=== PATIENT | female | born 1950 | race Caucasian/White ===

== ENCOUNTER 2021-03-21 09:22 | Observation (INO) ==
--- NOTE | 2021-03-06 09:05 | PAT Medication Instructions ---
Medication Instructions Date of Service March 06, 2021 Home Medications acetaminophen [Tylenol Extra Strength] 500 mg PO Q6H PRN ascorbic acid (vitamin C) [Vitamin C] 500 mg PO QAM aspirin [Aspir-81] 81 mg PO QPM atenolol 50 mg PO QPM atorvastatin 10 mg PO PM calcium carbonate [Calcium 500] 1,000 mg PO QAM cholecalciferol (vitamin D3) [Vitamin D3] 50 mcg PO QAM glipizide 2.5 mg PO QPM ibuprofen 200 mg PO Q6H PRN lisinopril 10 mg PO QPM meloxicam 7.5 mg PO QAM omega 5-ouk-dxo-fish oil [[place] 3 Fish Oil] 1 cap PO QAM ASK your surgeon for instructions ibuprofen 200 mg PO Q6H PRN meloxicam 7.5 mg PO QAM STOP taking 2 weeks before surgery If surgery is within 2 weeks, stop taking as soon as possible. omega 3-sjn-enr-fish oil [[place] 3 Fish Oil] 1 cap PO QAM DO NOT take the morning of surgery ascorbic acid (vitamin C) [Vitamin C] 500 mg PO QAM calcium carbonate [Calcium 500] 1,000 mg PO QAM cholecalciferol (vitamin D3) [Vitamin D3] 50 mcg PO QAM Take evening before surgery acetaminophen [Tylenol Extra Strength] 500 mg PO Q6H PRN (if needed) aspirin [Aspir-81] 81 mg PO QPM (OK to continue unless otherwise instructed by surgeon) atenolol 50 mg PO QPM atorvastatin 10 mg PO PM glipizide 2.5 mg PO QPM lisinopril 10 mg PO QPM Other Notes If you have any questions please call us at [phone] or [phone] or [phone] or [phone]
--- NOTE | 2021-03-06 13:33 | Anesthesiology Consultation ---
Date of Service March 06, 2021 Assessment & Plan (1) Encounter for pre-operative examination: COVID Status: As of 03/06 assessment, patient denies travel to endemic area, known exposure/sick contacts, or symptoms of COVID19. Patient instructed that they and their household members must follow strict social distancing guidelines, wear a mask in public and avoid travel/events/gatherings for 14 days prior to surgery. Preoperative COVID19 testing to be completed prior to surgery per surgeon's arrangements. Patient made aware to self-isolate as much as possible between COVID testing and surgery. BSG AM DOS Chart Review Chart Review: Acceptable Risk for Surgery and Patient seen in Pre Admission Testing Teaching & Discussion Instructed NPO after midnight before surgery, except medications with 15 cc of water. Medication instructions provided according to the PAT guidelines. History Surgery Operation Date: 03/21/21 14:05 Proposed Procedures p Left Total Knee Arthroplasty - Rizwan Shah DO Height/Weight Height: 5 ft 2 in Weight: 121.8 kg Allergies Allergy/AdvReac Type Severity Reaction Status Date / Time Sulfa (Sulfonamide Allergy Mild RASH Verified 03/02/21 08:52 Antibiotics) Medications Home Medications Medication Instructions Recorded Confirmed Last Taken acetaminophen [Tylenol Extra 500 mg PO Q6H PRN 03/02/21 03/02/21 Unknown Strength] ascorbic acid (vitamin C) [Vitamin 500 mg PO QAM 03/02/21 03/02/21 Unknown C] aspirin [Aspir-81] 81 mg PO QPM 03/02/21 03/02/21 Unknown atenolol 50 mg PO QPM 03/02/21 03/02/21 Unknown atorvastatin 10 mg PO PM 03/02/21 03/02/21 Unknown calcium carbonate [Calcium 500] 1,000 mg PO QAM 03/02/21 03/02/21 Unknown cholecalciferol (vitamin D3) 50 mcg PO QAM 03/02/21 03/02/21 Unknown [Vitamin D3] glipizide 2.5 mg PO QPM 03/02/21 03/02/21 Unknown ibuprofen 200 mg PO Q6H PRN 03/02/21 03/02/21 Unknown lisinopril 10 mg PO QPM 03/02/21 03/02/21 Unknown meloxicam 7.5 mg PO QAM 03/02/21 03/02/21 Unknown omega 2-szz-eqh-fish oil [[place] 3 1 cap PO QAM 03/02/21 03/02/21 Unknown Fish Oil] Past Medical History Medical History (Updated 03/07/21 @ 09:00 by Jeff Abbasi) Cancer RIGHT BREAST 2009 ENDOMETRIAL 2013 Diabetes mellitus, type 2 Hyperlipidemia Hypertension SOB (shortness of breath) on exertion OUT OF SHAPE Stress incontinence, female Exercise / Class Metabolic Activity III < 4 Walking/Shop/Light housework (Denies CP or SB with ambulation on flat surface) Past Family History Family History (Updated 03/02/21 @ 09:05 by Lina Nuno, ARYAN) Sister Family history of diabetes mellitus Mother Family history of diabetes mellitus Past Surgical History Surgical History History of section X 2- History of colonoscopy 2020 History of hysterectomy History of total knee replacement RIGHT 2014 Hx of lumpectomy RIGHT 2008 RADIATION/NO CHEMO Past Anesthesia History No Hx of Anesthesia Complications (other than severe PIERRE after breast surgery) and No Family Hx of Anesthesia Complications (Pt thinks severe PIERRE after breast surgery may have been related t the blue dye used? Unsure, but no other issues with any other surgeries). History of PONV No Hx of PONV and No Hx of Motion Sickness Social History Smoking Status: Former smoker Do You Dip or Chew Tobacco: No Smoking End Date: QUIT 20+ YRS AGO Hx Alcohol Use: No Hx Substance Use: No Review of Systems Pt denies any recent chest pain, shortness of breath, cough, fever, URI, or uncontrolled acid reflux. + occ palpitations Physical Exam Vital Signs BP: 112/63 P: 68bpm SPO2: 96% RA T: 98.0 F R: 16 Constitutional + morbidly obese ENMT Mouth: + dental restorations (one crown upper left); no chipped teeth and no loose teeth Thyromental Distance: > or= 3.5 Finger Breadths Mallampati Class: III Neck + thick neck; neck extension not limited Respiratory normal respiratory effort, lungs clear to auscultation Cardiovascular RRR, no murmur, no edema Vessels: no carotid bruit Testing Laboratory Results 03/06/21 13:40 03/06/21 13:40 PT 10.3 Seconds (9.0-12.0) 03/06/21 13:40 INR 1.0 (0.9-1.1) 03/06/21 13:40 APTT 27.2 Seconds (21.0-31.0) 03/06/21 13:40 Hemoglobin A1c 6.0 % (4.5-5.6) H 03/06/21 13:40 Urine Color Yellow 03/06/21 13:40 Urine Appearance Clear (Clear) 03/06/21 13:40 Urine pH 6.5 (4.5-7.5) 03/06/21 13:40 Ur Specific [place] 1.007 (1.000-1.030) 03/06/21 13:40 Urine Protein Negative (Negative) 03/06/21 13:40 Urine Glucose (UA) Negative (Negative) 03/06/21 13:40 Urine Ketones Negative (Negative) 03/06/21 13:40 Urine Nitrite Negative (Negative) 03/06/21 13:40 Ur Leukocyte Esterase Negative (Negative) 03/06/21 13:40 Blood Type B Positive 03/06/21 13:40 Antibody Screen NEGATIVE 03/06/21 13:40 Electrocardiogram Date: 03/06/21 Findings: + NSR @ (62bpm) iRBBB. Compared to EKG from 06/13/2015 no significant change was found. Chest X-Ray Date: 03/06/21 Findings: + NAD
--- NOTE | 2021-03-06 14:18 | XRay Report ---
XR chest 2V PA/lateral HISTORY: 70 years-old Female pre-op, hx tobacco use, for Dr Shah chronic degenerative joint disease COMPARISON: None TECHNIQUE: PA and lateral views of the chest FINDINGS: Cardiomediastinal and hilar silhouettes are within normal limits. There is no pneumothorax, pleural e ffusion, airspace consolidation or overt pulmonary edema. The bones of the chest appear grossly intac t. Degenerative changes of the shoulders and spine. IMPRESSION: No acute process. ACT 112: Negative or not required by law. The above report was generated using voice recognition software. It may contain grammatical, syntax o r spelling errors. Electronically signed by: Ariel Dick M.D. 03/06/2021 2:17 PM
[2021-03-06 14:55] LABS: Basophils # (auto) 0.03 K/uL (0-0.2); Basophils % (auto) 0.4 %; Eosinophils # (auto) 0.13 K/uL (0-0.5); Eosinophils % (auto) 1.8 %; Hematocrit (blood only) 42.4 % (37-47); Hemoglobin 13.4 g/dL (12.0-16.0); Immature Granulocytes # (auto) 0.02 K/uL (0.00-0.02); Immature Granulocytes % (auto) 0.3 %; Lymphocytes # (auto) 1.67 K/uL (1.2-3.4); Lymphocytes % (auto) 22.6 %; Mean Corpuscular Hemoglobin 26.9 pg (25-34); Mean Corpuscular Hgb Conc 31.6 g/dL (32-36); Mean Corpuscular Volume 85.1 fL (80-100); Mean Platelet Volume 9.9 fL (7.4-10.4); Monocytes # (auto) 0.35 K/uL (0.11-0.59); Monocytes % (auto) 4.7 %; Neutrophils # (auto) 5.19 K/uL (1.4-6.5); Neutrophils % (auto) 70.2 %; Platelet Count 192 K/uL (130-400); RDW Coefficient of Variation 13.9 % (11.5-14.5); RDW Standard Deviation 43.3 fL (36.4-46.3); Red Blood Count 4.98 M/uL (4.2-5.4); White Blood Count 7.39 K/uL (4.8-10.8)
[2021-03-06 14:56] LABS: Appearance Urine Clear (Clear); Bilirubin Urine Negative (Negative); Blood Urine Negative (Negative); Color Urine Yellow; Glucose Urine UA Negative (Negative); Ketones Urine Negative (Negative); Leukocyte Esterase Urine Negative (Negative); Nitrite Urine Negative (Negative); Protein Urine Negative (Negative); Specific Gravity Urine 1.007 (1.000-1.030); Urobilinogen Urine Negative (Negative); pH Urine 6.5 (4.5-7.5)
[2021-03-06 15:07] LABS: Partial Thromboplastin Time 27.2 Seconds (21.0-31.0); Prothrombin Time 10.3 Seconds (9.0-12.0)
[2021-03-06 16:49] LABS: Albumin Level 3.5 gm/dl (3.4-5.0); BUN Creatinine Ratio 24.7 (10-20); Calcium 8.8 mg/dl (8.5-10.1); Creatinine Clr Calc Pharmacy 85.6 ml/min; Est GFR (African American) 92.9; Est GFR (Non-African American) 80.2; Potassium 4.6 mmol/L (3.5-5.1)
[2021-03-07 06:56] LABS: Estimated Average Glucose 126 mg/dl
--- NOTE | 2021-03-07 08:29 | Electrocardiogram Report ---
Test Reason : Blood Pressure : / mmHG Vent. Rate : 062 BPM Atrial Rate : 062 BPM P-R Int : 162 ms QRS Dur : 096 ms QT Int : 430 ms P-R-T Axes : 061 011 060 degrees QTc Int : 436 ms Normal sinus rhythm Incomplete right bundle branch block Borderline ECG When compared with ECG of 13-JUN-2015 11:50, No significant change was found Confirmed by Tylor Pierson ([id number]) on 03/07/2021 8:28:47 AM Referred By: Rizwan Shah Confirmed By:Tylor Pierson
--- NOTE | 2021-03-12 09:04 | History & Physical Report ---
Date of Service March 12, 2021 date of surgery: 03/21/21 Procedure: Left Total Knee Arthroplasty Assessment & Plan (1) Arthritis of knee, left: Further care discussed with patient and at this point in time has failed conservative measures and would like to proceed with a left total knee repla cement. Plan on discharge will be home with home health physical therapy. DVT prophalaxis with TEDs, SCDs and will also place on aspirin 81 mg p.o. b.i.d. for a month postop. Patient will have follow up appointment in our office two weeks post op for staple/suture removal and re-evaluation. Patient otherwise has no other questions or concerns. The risks and benefits have been discussed including, but not limited to, risk of infection, nerve injury, stiffness, loss of motion, failure to improve, etc. Reasonable outcomes and options of treatment were discussed. An explanation of appropriate alternatives to the procedure that may be advantageous were discussed and their risks and benefits, as well as the risks and benefits of not proceeding with treatment. I offered to answer any additional inquiries concerning the treatment involved. All the patient's questions were answered. The patient is agreeable, understanding of the treatment plan and alternatives, and wishes to proceed with the treatment plan. History of Present Illness Chief Complaint: left knee pain Primary Care Provider: Steve Linder is a pleasant 70 year old female who complains of left knee pain, presents for pre-op evaluation prior to a left total knee replacement by Dr Shah at [facility]. she complains of pain and stiffness in her left knee. she states that the symptoms occur constantly with intermittent worsening. Currently the patient states that the symptoms are moderate-severe. The pain is described as aching, sharp and throbbing. Her symptoms are aggravated by ascending stairs, daily activities, first steps while awake walking. Prior NSAIDs include IBU and Mobic, as well as uses Tylenol for pain. Allergies Allergy/AdvReac Type Severity Reaction Status Date / Time Sulfa (Sulfonamide Allergy Mild RASH Verified 03/02/21 08:52 Antibiotics) Home Medications Medication Instructions Recorded Confirmed Type acetaminophen [Tylenol Extra 500 mg PO Q6H PRN 03/02/21 03/02/21 History Strength] ascorbic acid (vitamin C) [Vitamin 500 mg PO QAM 03/02/21 03/02/21 History C] aspirin [Aspir-81] 81 mg PO QPM 03/02/21 03/02/21 History atenolol 50 mg PO QPM 03/02/21 03/02/21 History atorvastatin 10 mg PO PM 03/02/21 03/02/21 History calcium carbonate [Calcium 500] 1,000 mg PO QAM 03/02/21 03/02/21 History cholecalciferol (vitamin D3) 50 mcg PO QAM 03/02/21 03/02/21 History [Vitamin D3] glipizide 2.5 mg PO QPM 03/02/21 03/02/21 History ibuprofen 200 mg PO Q6H PRN 03/02/21 03/02/21 History lisinopril 10 mg PO QPM 03/02/21 03/02/21 History meloxicam 7.5 mg PO QAM 03/02/21 03/02/21 History omega 8-jum-yyt-fish oil [[place] 3 1 cap PO QAM 03/02/21 03/02/21 History Fish Oil] Past Med/Surg History Medical History Cancer RIGHT BREAST 2009 ENDOMETRIAL 2014 Diabetes mellitus, type 2 Hyperlipidemia Hypertension SOB (shortness of breath) on exertion OUT OF SHAPE Stress incontinence, female Surgical History History of section X 2-1982/1984 History of colonoscopy 2019 History of hysterectomy History of total knee replacement RIGHT 2014: Right total knee arthroplasty utilizing Chilel & Nephew Journey II non-block total knee arthroplasty size 5 femur, 4 tibia, 11 spacer, 32 patella Hx of lumpectomy RIGHT 2008 RADIATION/NO CHEMO Family History Sister Family history of diabetes mellitus Mother Family history of diabetes mellitus Social History Smoking Status: Former smoker Smoking End Date: QUIT 20+ YRS AGO; Second Hand Exposure: Yes (PARENTS SMOKED); Do You Dip or Chew Tobacco: No; Hx Alcohol Use: No Hx Substance Use: No Preferred Language: [place] Communication Ability: Effective Human Resources Hr Generalist Required: No Beliefs That Will Affect Care: None Current Living Situation: Spouse and Family current occupational status: retired Other Information That Helps Us Care for You: No Feels Safe at Home: Yes Safety Concerns: Feels Safe At This Time Assistive Devices: None Review of Systems Review of Systems: All systems reviewed & are unremarkable except as noted in HPI & below Constitutional: no fever, no chills and no sweats Respiratory: no cough and no dyspnea Cardiovascular: no chest pain, no dyspnea and no orthopnea Gastrointestinal: no abdominal pain, no nausea and no vomiting Musculoskeletal: as per Subjective / HPI Physical Exam Physical Exam: HT: 5ft 2in WT: 121.8kg BP: 156/82 Constitutional: WD/WN, vitals as above no acute distress Respiratory: normal respiratory effort, lungs clear to auscultation no respiratory distress, no labored breathing and does not use accessory muscles Cardiovascular: RRR, no murmur, no edema Gastrointestinal (Abdomen): normal bowel sounds, soft, nontender, no hepatosplenomegaly Musculoskeletal: Knee: + knee abnormal to inspection (LEFT KNEE), + effusion (+1 effusion), + limited ROM of knee (ROM 0/3/110), + knee ROM with crepitation, + joint line tenderness (medial joint line) and + Fiona's sign positive; no deformity, no skin erythema, no ecchymosis, no valgus laxity, no varus laxity, anterior drawer test negative, Barbra's sign negative and pivot shift test negative Results & Data Results & Data ([facility]) Laboratory Results Laboratory Results WBC 7.39 K/uL (4.8-10.8) 03/06/21 13:40 RBC 4.98 M/uL (4.2-5.4) 03/06/21 13:40 Hgb 13.4 g/dL (12.0-16.0) 03/06/21 13:40 Hct 42.4 % (37-47) 03/06/21 13:40 MCV 85.1 fL (80-100) 03/06/21 13:40 MCH 26.9 pg (25-34) 03/06/21 13:40 MCHC 31.6 g/dL (32-36) L 03/06/21 13:40 RDW Std Deviation 43.3 fL (36.4-46.3) 03/06/21 13:40 RDW Coeff of Akash 13.9 % (11.5-14.5) 03/06/21 13:40 Plt Count 192 K/uL (130-400) 03/06/21 13:40 MPV 9.9 fL (7.4-10.4) 03/06/21 13:40 Immature Gran % (Auto) 0.3 % 03/06/21 13:40 Neut % (Auto) 70.2 % 03/06/21 13:40 Lymph % (Auto) 22.6 % 03/06/21 13:40 [place] % (Auto) 4.7 % 03/06/21 13:40 Eos % (Auto) 1.8 % 03/06/21 13:40 Baso % (Auto) 0.4 % 03/06/21 13:40 Neut # (Auto) 5.19 K/uL (1.4-6.5) 03/06/21 13:40 Lymph # (Auto) 1.67 K/uL (1.2-3.4) 03/06/21 13:40 [place] # (Auto) 0.35 K/uL (0.11-0.59) 03/06/21 13:40 Eos # (Auto) 0.13 K/uL (0-0.5) 03/06/21 13:40 Baso # (Auto) 0.03 K/uL (0-0.2) 03/06/21 13:40 Immature Gran # (Auto) 0.02 K/uL (0.00-0.02) 03/06/21 13:40 PT 10.3 Seconds (9.0-12.0) 03/06/21 13:40 INR 1.0 (0.9-1.1) 03/06/21 13:40 APTT 27.2 Seconds (21.0-31.0) 03/06/21 13:40 PTT Ratio 1.0 03/06/21 13:40 Sodium 139 mmol/L (136-145) 03/06/21 13:40 Potassium 4.6 mmol/L (3.5-5.1) 03/06/21 13:40 Chloride 106 mmol/L (98-107) 03/06/21 13:40 Carbon Dioxide 30 mmol/L (21-32) 03/06/21 13:40 Anion Gap 3.0 (3-11) 03/06/21 13:40 BUN 19 mg/dl (7-18) H 03/06/21 13:40 Creatinine 0.75 mg/dl (0.6-1.2) 03/06/21 13:40 Est Cr Clr Drug Dosing 85.6 ml/min 03/06/21 13:40 Est GFR ( Amer) 92.9 03/06/21 13:40 Est GFR (Non-Af Amer) 80.2 03/06/21 13:40 BUN/Creatinine Ratio 24.7 (10-20) H 03/06/21 13:40 Glucose 127 mg/dl (70-99) H 03/06/21 13:40 Estimat Average Glucose 126 mg/dl 03/06/21 13:40 Hemoglobin A1c 6.0 % (4.5-5.6) H 03/06/21 13:40 Calcium 8.8 mg/dl (8.5-10.1) 03/06/21 13:40 Albumin 3.5 gm/dl (3.4-5.0) 03/06/21 13:40 Urine Color Yellow 03/06/21 13:40 Urine Appearance Clear (Clear) 03/06/21 13:40 Urine pH 6.5 (4.5-7.5) 03/06/21 13:40 Ur Specific [place] 1.007 (1.000-1.030) 03/06/21 13:40 Urine Protein Negative (Negative) 03/06/21 13:40 Urine Glucose (UA) Negative (Negative) 03/06/21 13:40 Urine Ketones Negative (Negative) 03/06/21 13:40 Urine Blood Negative (Negative) 03/06/21 13:40 Urine Nitrite Negative (Negative) 03/06/21 13:40 Urine Bilirubin Negative (Negative) 03/06/21 13:40 Urine Urobilinogen Negative (Negative) 03/06/21 13:40 Ur Leukocyte Esterase Negative (Negative) 03/06/21 13:40 Blood Type B Positive 03/06/21 13:40 Antibody Screen NEGATIVE 03/06/21 13:40 Impressions Chest X-Ray 03/06/21 13:44 XR chest 2V PA/lateral HISTORY: 70 years-old Female pre-op, hx tobacco use, for Dr Shah chronic degenerative joint disease COMPARISON: None TECHNIQUE: PA and lateral views of the chest FINDINGS: Cardiomediastinal and hilar silhouettes are within normal limits. There is no pneumothorax, pleural effusion, airspace consolidation or overt pulmonary edema. The bones of the chest appear grossly intact. Degenerative changes of the shoulders and spine. IMPRESSION: No acute process. ACT 112: Negative or not required by law. The above report was generated using voice recognition software. It may contain grammatical, syntax or spelling errors. Electronically signed by: Ariel Dick M.D. 03/06/2021 2:17 PM Diagnostic Findings Left Knee X-ray: left knee series confirm advanced degenerative changes to the left knee, greatest medial compartments and patellofemoral joint, showing joint space narrowing, osteophyte formation and subchondral sclerosis. no acute bony pathology noted.
[~2021-03-21 09:22] MED LIST: ACETAMINOPHEN 500 MG TAB PO SCH; BUPIVACAINE 0.5 % 5 MG/1 ML PF 10ML VIAL ONE; FAMOTIDINE 20 MG TAB PO SCH; GABAPENTIN 300 MG CAP PO SCH; LR 500ML BOLUS, THEN 15ML/HR IV SCH; METOCLOPRAMIDE HCL 10 MG TABLET PO SCH; ROPIVACAINE 0.5% HCL/PF 150 MG, BUPIVACAINE 0.75% MPF 20 ML, EPINEPHrine 30MG/30ML (OR ... INFIL SCH; TRANEXAMIC ACID 1,000 MG **IV Intra-op IV SCH; TRANEXAMIC ACID 1,000 MG **IV Pre-op IV SCH; dexAMETHasone 4 MG TAB PO SCH
--- NOTE | 2021-03-21 09:52 | History & Physical Bridge Note ---
Date of Service March 21, 2021 History & Physical Bridge Note I have examined the patient, reviewed the History & Physical and in the interval since the performance of the History & Physical I have noted the following changes of clinical significance: no changes noted
[2021-03-21] MEDS ORDERED: fentaNYL citrate 100 MCG/2 ML VIAL ONE (10:00)
[2021-03-21] MEDS ORDERED: MIDAZOLAM HCL 1 MG/ML 2ML VIAL ONE (10:00)
[2021-03-21] MEDS ORDERED: fentaNYL citrate 100 MCG/2 ML VIAL IV PRN (11:04)
[2021-03-21] MEDS ORDERED: ONDANSETRON INJ 2 MG/ML 2 ML VIAL IV PRN ×2 (11:04→16:34)
[2021-03-21] MEDS ORDERED: ePHEDrine sulfate 50 MG/ML AMP IV PRN (11:04)
[2021-03-21] MEDS ORDERED: ATROPINE SULFATE 0.1 MG/ML 10ML SYR IV PRN (11:04)
[2021-03-21] MEDS ORDERED: ORTHO JOINT ANESTHETIC ONE (11:21)
[2021-03-21] MEDS ORDERED: KETAMINE 50 MG/5 ML SYRINGE ONE (12:37)
[2021-03-21] MEDS ORDERED: ONDANSETRON INJ 2 MG/ML 2 ML VIAL ONE (12:58)
[2021-03-21] MEDS ORDERED: LIDOCAINE 2% 2 ML VIAL/AMP(20MG/ML) INFIL ONE (12:58)
[2021-03-21] MEDS ORDERED: PROPOFOL IV EMULSION 10 MG/ML 20 ML VIAL IV ONE ×2 (12:58→12:59)
[2021-03-21] MEDS ORDERED: ePHEDrine sulfate 50 MG/ML SYR ONE (13:00)
--- NOTE | 2021-03-21 13:39 | Operative Report ---
Post Operative Report Pre & Post Diagnosis Operation Date: 03/21/21 12:10 Pre-Op Diagnosis: Unilateral Primary Osteoarthritis, Left Knee Post-Op Diagnosis: Unilateral Primary Osteoarthritis, Left Knee I identified the patient and participated in the time-out.: Yes Procedure Operation Date: 03/21/21 12:10 Actual Procedures p Left Total Knee Arthroplasty(Left) utilizing Chilel & Nephew journey 2 nonblock total knee arthroplasty size femur 5 tibia 3 polyethylene 10 patella 32 chilango- Rizwan Shah DO Surgeon Rizwan Shah DO Police Dispatcher Sivakumar CARRANZA Estimated Blood Loss 5 Findings Consistent with Post-Op Diagnosis Patient presents nondisplaced pain trouble to the left knee no response to conservative management the patient has subchondral sclerosis marginal osteophytes eburnated [id number] with moderate to large effusion Specimens Bone and cartilage Drains Medium bore Hemovac Anesthesia Type General Regional Complications none Disposition Accompanied Patient To Recovery: No Disposition: Recovery Room Indications Patient presents with ongoing planes of anterior left knee no response to conservative management with physical therapy anti-inflammatories relative rest activity modification corticosteroid injections viscosupplementation the above intraoperative findings were noted Description of Procedure After proper prepping and draping of the left lower extremity anterior midline incision was made over the region of the extensor extensor mechanism after meticulous hemostasis was obtained and maintained in subcutaneous tissues a medial parapatellar incision was made The patella was subluxed lateralward the medial lateral gutter were cleaned from any hypertrophic synovitis and scar tissue of the distal femoral block was placed and the distal femoral osteotomy cut was made subsequently the chamfers anterior and posterior osteotomy cuts were made utilizing the 4-in-1 block the tibia was subsequently subluxed anteriorward medial and ateral meniscal remnants were excised in their entirety remnants of the anterior and posterior cruciate ligaments were excised in their entirety excellent exposure of the proximal tibia was obtained the tibial osteotomy guide was placed on the proximal tibial osteotomy cut was made once again the knee was irrigated with copious amounts of sterile saline solution the patella was subsequently everted lateralward thickened scar tissue around the patella was removed the patella was subsequently cut utilizing a freehand technique and was drilled prepared for final preparation and placement of patella socially flexion-extension gaps were checked and the equal and symmetric trials were placed to the appropriate femoral and tibial trials with poly-spacer being placed for equal flexion and extension gaps and full range of motion including extension to 0 and flexion to 140 the trial components after having been taken to recovery range of motion was subsequently removed meticulous hemostasis was obtained and maintained subsequently a knee block injection of joint cocktail including ropivacaine 0.5% 150 mg. Bupivacaine 0.5% epinephrine 1-200,030 mL's toradol 30 mg dexamethasone 4 mg ketamine 10 mg clonidine 100 micrograms normal saline solution 30 mg was infiltrated into the soft tissues of the posterior knee medial lateral gutters and periosteal synovium special attention was paid to protect neurovascular structures at all times subsequently trial components having been removed the knee was irrigated with sterile saline solution. debris was removed the proximal tibia was subsequently prepared and was made ready for the placement of the tibial component tibial component was also cemented and tamped into position the femoral component was subsequently placed and cemented in the position the patellar component was subsequently cemented in position because hemostasis once again obtained and maintained wound having been thoroughly irrigated with debridement and debridement lavage was performed as well as a medial parapatellar incision closed with #1 Vicryl in interrupted fashion subcutaneous was closed with #2 Vicryl skin was closed with skin clips. PA-C was necessary for prepping and drapping as well as wound closure of deep fascia Sub cutaneous tissue and skin and was necessary for the case. A sterile compressive dressing was placed patient was taken to recovery in stable condition of report dictated by Pablo I attest to the content of the Intraoperative Record and any orders documented therein. Any exceptions are noted below. I attest to the content of the Intraoperative Record and any orders documented therein. Any exceptions are noted below.
--- NOTE | 2021-03-21 14:46 | Anesthesiology Progress Note ---
Date of Service March 21, 2021 Anesthesia Post Procedure Vital Signs Vital Signs: Temp Pulse Pulse Resp BP Pulse Ox 03/21/21 14:35 71 15 133/74 96 03/21/21 14:29 97.7 F 78 16 131/83 94 03/21/21 09:59 98.4 F 69 20 166/85 H 97 Transfer of Care Handoff Completed per policy Notes Mental Status: alert / awake / arousable and participated in evaluation Patient Amnestic to Procedure: Yes Nausea / Vomiting: adequately controlled Pain: adequately controlled Airway Patency, RR, SpO2: stable & adequate BP & HR: stable & adequate Hydration State: stable & adequate Neuraxial Anesthesia: was administered and sensory block is resolving Anesthetic Complications: no major complications apparent and Pt Satisfied with anesthetic care
--- NOTE | 2021-03-21 15:37 | XRay Report ---
LEFT KNEE 2 VIEWS History: Left total knee arthroplasty. Degenerative arthritis. Postop. FINDINGS: The patient is status post a left total knee arthroplasty. The hardware is intact. No fract ure or dislocation. Skin isabelle and surgical drains are in place. IMPRESSION: Left total knee arthroplasty. No evidence for hardware complication. ACT 112: Negative or not required by law. Electronically signed by: Willem Davis M.D. 03/21/2021 3:35 PM
[2021-03-21] MEDS ORDERED: HYDROmorphone INJ 0.5 MG/0.5 ML SYR IV PRN (16:34)
[2021-03-21] MEDS ORDERED: bisacodyL 10 MG SUPP PR PRN (16:34)
[2021-03-21] MEDS ORDERED: NALOXONE HCL 0.4 MG/1 ML VIAL/CARP IV PRN (16:34)
[2021-03-21] MEDS ORDERED: MAGNESIUM HYDROXIDE SUSP 30 ML UDC PO PRN (16:34)
[2021-03-21] MEDS: glipiZIDE 5 MG TAB PO SCH (17:43)
[2021-03-21] MEDS: SODIUM CHLORIDE 0.9% 1000ML 1,000 ML IV SCH (17:44)
[2021-03-21] MEDS: ceFAZolin 2000MG 2,000 MG/15 ML SYR IV SCH (19:27)
[2021-03-21] MEDS: SENNA 8.6 MG TAB PO SCH (19:47)
[2021-03-21] MEDS: ASPIRIN 81 MG ECTAB PO SCH (19:47)
[2021-03-21] MEDS: ATENOLOL 50 MG TABLET PO SCH (19:47)
[2021-03-21] MEDS: lisinopril 10 MG TAB PO SCH (19:47)
[2021-03-21] MEDS: ATORVASTATIN 10 MG TAB PO SCH (19:47)
[2021-03-21] MEDS: DOCUSATE SODIUM 100 MG CAP PO SCH (19:47)
[2021-03-21] MEDS: ACETAMINOPHEN 500 MG TAB PO SCH (21:09)
[2021-03-22] MEDS: ceFAZolin 2000MG 2,000 MG/15 ML SYR IV SCH (03:03)
[2021-03-22] MEDS: SODIUM CHLORIDE 0.9% 1000ML 1,000 ML IV SCH (03:03)
[2021-03-22] MEDS: oxyCODONE HCL IR 5 MG TAB (IMMEDIATE RELEASE) PO PRN ×3 (03:09→21:30)
[2021-03-22] MEDS: ACETAMINOPHEN 500 MG TAB PO SCH ×3 (05:27→21:34)
[2021-03-22 06:48] LABS: Hematocrit (blood only) 37.1 % (37-47); Hemoglobin 11.6 g/dL (12.0-16.0); Mean Corpuscular Hemoglobin 26.3 pg (25-34); Mean Corpuscular Hgb Conc 31.3 g/dL (32-36); Mean Corpuscular Volume 84.1 fL (80-100); Mean Platelet Volume 9.8 fL (7.4-10.4); Platelet Count 178 K/uL (130-400); RDW Coefficient of Variation 13.8 % (11.5-14.5); RDW Standard Deviation 42.7 fL (36.4-46.3); Red Blood Count 4.41 M/uL (4.2-5.4); White Blood Count 14.51 K/uL (4.8-10.8)
[2021-03-22 07:17] LABS: BUN Creatinine Ratio 35.3 (10-20); Calcium 7.9 mg/dl (8.5-10.1); Creatinine Clr Calc Pharmacy 118.3 ml/min; Est GFR (Non-African American) 94.9 ml/min; Potassium 4.4 mmol/L (3.5-5.1)
--- NOTE | 2021-03-22 08:37 | Anesthesiology Progress Note ---
Date of Service March 22, 2021 Anesthesia Post Procedure Vital Signs Vital Signs: Temp Pulse Pulse Pulse Resp BP BP 03/22/21 06:52 36.8 C 58 L 16 133/82 03/22/21 03:04 36.8 C 54 L 18 127/80 03/21/21 22:35 36.3 C L 55 L 16 121/77 03/21/21 21:08 61 135/78 03/21/21 19:38 36.5 C 75 18 177/105 H 03/21/21 18:20 36.8 C 62 16 132/76 03/21/21 17:17 36.7 C 65 16 131/75 03/21/21 16:50 36.7 C 57 L 16 126/82 03/21/21 16:15 63 14 134/70 03/21/21 16:00 72 17 120/69 03/21/21 15:45 60 12 119/60 03/21/21 15:30 61 12 108/60 03/21/21 15:15 61 16 115/68 03/21/21 15:05 62 16 138/76 03/21/21 14:55 36.4 C L 61 13 136/78 03/21/21 14:45 69 17 119/72 03/21/21 14:35 71 15 133/74 03/21/21 14:29 36.5 C 78 16 131/83 03/21/21 09:59 36.9 C 69 20 166/85 H Pulse Ox 03/22/21 06:52 93 03/22/21 03:04 94 03/21/21 22:35 93 03/21/21 21:08 03/21/21 19:38 94 03/21/21 18:20 95 03/21/21 17:17 96 03/21/21 16:50 95 03/21/21 16:15 92 03/21/21 16:00 94 03/21/21 15:45 93 03/21/21 15:30 94 03/21/21 15:15 95 03/21/21 15:05 95 03/21/21 14:55 93 03/21/21 14:45 94 03/21/21 14:35 96 03/21/21 14:29 94 03/21/21 09:59 97 Pain Intensity Left Knee: Pain Intensity: 4 Notes Mental Status: alert / awake / arousable and participated in evaluation Patient Amnestic to Procedure: Yes Nausea / Vomiting: adequately controlled Pain: adequately controlled Airway Patency, RR, SpO2: stable & adequate BP & HR: stable & adequate Hydration State: stable & adequate Neuraxial Anesthesia: was administered and sensory block resolved Anesthetic Complications: no major complications apparent
[2021-03-22] MEDS: MULTIVITAMIN TAB PO SCH (08:48)
[2021-03-22] MEDS: CALCIUM CARBONATE 1250MG TAB PO SCH (08:48)
[2021-03-22] MEDS: CHOLECALCIFEROL 1,000 UNITS 25 MCG TAB PO SCH (08:48)
[2021-03-22] MEDS: DOCUSATE SODIUM 100 MG CAP PO SCH ×2 (08:48→21:33)
[2021-03-22] MEDS: ASPIRIN 81 MG ECTAB PO SCH ×2 (08:48→21:34)
--- NOTE | 2021-03-22 09:49 | Orthopedic Progress Note ---
Date of Service March 22, 2021 Assessment & Plan (1) Arthritis of knee, left: Postop day 1 status post left total knee arthroplasty. PT/OT protocols. Weightbearing as tolerated. DVT prophylaxis-aspirin p.o. twice daily, SCDs, BIA ferreira. Pain management as written. Discharge planning-patient is planning for outpatient PT upon discharge. Admission and Anticipated Discharge Date Admission Date: March 21, 2021 Supervising Physician Co-Signing Physician Notes Patient seen and examined. Agree with TERE Nguyen's note as above. Patient is doing very well. She is mobilizing well and pain is well controlled. Motion is still little bit difficult for her. Her main issue is her Hemovac drain output. Plan for drain removal when it subsides, and then discharge home. Subjective Postop day 1 Patient sitting up in chair at bedside. Just finished doing her occupational therapy session. She is having a little bit of discomfort since doing her OT session but otherwise is feeling well. Denies shortness of breath, chest pain, lightheadedness. Physical Exam Physical Exam: Presence are clean, dry, and intact. Calves are soft nontender. Neurovascular intact. Toes are mobile. She has good dorsiflexion plantarflexion of the left foot. Hemovac drainage was approximately 150 mL from the previous shift. Results & Data ([facility]) Vital Signs (Past 12 Hours) Vital Signs Temp Pulse Resp BP Pulse Ox 03/22/21 06:52 36.8 C 58 L 16 133/82 93 03/22/21 03:04 36.8 C 54 L 18 127/80 94 03/21/21 22:35 36.3 C L 55 L 16 121/77 93 Laboratory Results Laboratory Results WBC 14.51 K/uL (4.8-10.8) H 03/22/21 06:14 RBC 4.41 M/uL (4.2-5.4) 03/22/21 06:14 Hgb 11.6 g/dL (12.0-16.0) L 03/22/21 06:14 Hct 37.1 % (37-47) 03/22/21 06:14 MCV 84.1 fL (80-100) 03/22/21 06:14 MCH 26.3 pg (25-34) 03/22/21 06:14 MCHC 31.3 g/dL (32-36) L 03/22/21 06:14 RDW Std Deviation 42.7 fL (36.4-46.3) 03/22/21 06:14 RDW Coeff of Akash 13.8 % (11.5-14.5) 03/22/21 06:14 Plt Count 178 K/uL (130-400) 03/22/21 06:14 MPV 9.8 fL (7.4-10.4) 03/22/21 06:14 Immature Gran % (Auto) 0.3 % 03/06/21 13:40 Neut % (Auto) 70.2 % 03/06/21 13:40 Lymph % (Auto) 22.6 % 03/06/21 13:40 [place] % (Auto) 4.7 % 03/06/21 13:40 Eos % (Auto) 1.8 % 03/06/21 13:40 Baso % (Auto) 0.4 % 03/06/21 13:40 Neut # (Auto) 5.19 K/uL (1.4-6.5) 03/06/21 13:40 Lymph # (Auto) 1.67 K/uL (1.2-3.4) 03/06/21 13:40 [place] # (Auto) 0.35 K/uL (0.11-0.59) 03/06/21 13:40 Eos # (Auto) 0.13 K/uL (0-0.5) 03/06/21 13:40 Baso # (Auto) 0.03 K/uL (0-0.2) 03/06/21 13:40 Immature Gran # (Auto) 0.02 K/uL (0.00-0.02) 03/06/21 13:40 PT 10.3 Seconds (9.0-12.0) 03/06/21 13:40 INR 1.0 (0.9-1.1) 03/06/21 13:40 APTT 27.2 Seconds (21.0-31.0) 03/06/21 13:40 PTT Ratio 1.0 03/06/21 13:40 Sodium 140 mmol/L (136-145) 03/22/21 06:14 Potassium 4.4 mmol/L (3.5-5.1) 03/22/21 06:14 Chloride 112 mmol/L (98-107) H 03/22/21 06:14 Carbon Dioxide 24 mmol/L (21-32) 03/22/21 06:14 Anion Gap 4.0 (3-11) 03/22/21 06:14 BUN 19 mg/dl (7-18) H 03/22/21 06:14 Creatinine 0.54 mg/dl (0.6-1.2) L 03/22/21 06:14 Est Cr Clr Drug Dosing 118.3 ml/min 03/22/21 06:14 Est GFR ( Amer) 110.0 ml/min 03/22/21 06:14 Est GFR (Non-Af Amer) 94.9 ml/min 03/22/21 06:14 BUN/Creatinine Ratio 35.3 (10-20) H 03/22/21 06:14 Glucose 133 mg/dl (70-99) H 03/22/21 06:14 POC Glucose 132 mg/dl (70-99) H 03/21/21 14:32 Estimat Average Glucose 126 mg/dl 03/06/21 13:40 Hemoglobin A1c 6.0 % (4.5-5.6) H 03/06/21 13:40 Calcium 7.9 mg/dl (8.5-10.1) L 03/22/21 06:14 Albumin 3.5 gm/dl (3.4-5.0) 03/06/21 13:40 Specimen Hemolysis 03/22/21 06:14 Urine Color Yellow 03/06/21 13:40 Urine Appearance Clear (Clear) 03/06/21 13:40 Urine pH 6.5 (4.5-7.5) 03/06/21 13:40 Ur Specific [place] 1.007 (1.000-1.030) 03/06/21 13:40 Urine Protein Negative (Negative) 03/06/21 13:40 Urine Glucose (UA) Negative (Negative) 03/06/21 13:40 Urine Ketones Negative (Negative) 03/06/21 13:40 Urine Blood Negative (Negative) 03/06/21 13:40 Urine Nitrite Negative (Negative) 03/06/21 13:40 Urine Bilirubin Negative (Negative) 03/06/21 13:40 Urine Urobilinogen Negative (Negative) 03/06/21 13:40 Ur Leukocyte Esterase Negative (Negative) 03/06/21 13:40 COVID-19 Eval Order [facility] 03/21/21 09:44 SARS-CoV-2, RNA, NAAT NEGATIVE (NEGATIVE) 03/21/21 09:44 Blood Type B Positive 03/06/21 13:40 Antibody Screen NEGATIVE 03/06/21 13:40 Knee X-Ray 03/21/21 15:01 LEFT KNEE 2 VIEWS History: Left total knee arthroplasty. Degenerative arthritis. Postop. FINDINGS: The patient is status post a left total knee arthroplasty. The hardware is intact. No fracture or dislocation. Skin isabelle and surgical drains are in place. IMPRESSION: Left total knee arthroplasty. No evidence for hardware complication. ACT 112: Negative or not required by law. Electronically signed by: Willem Davis M.D. 03/21/2021 3:35 PM
[2021-03-22] MEDS: glipiZIDE 5 MG TAB PO SCH (17:25)
[2021-03-22] MEDS: SENNA 8.6 MG TAB PO SCH (21:32)
[2021-03-22] MEDS: ATORVASTATIN 10 MG TAB PO SCH (21:33)
[2021-03-22] MEDS: ATENOLOL 50 MG TABLET PO SCH (21:33)
[2021-03-22] MEDS: lisinopril 10 MG TAB PO SCH (21:36)
[2021-03-23] MEDS: ACETAMINOPHEN 500 MG TAB PO SCH (05:05)
[2021-03-23] MEDS: DOCUSATE SODIUM 100 MG CAP PO SCH (08:38)
[2021-03-23] MEDS: CALCIUM CARBONATE 1250MG TAB PO SCH (08:38)
[2021-03-23] MEDS: CHOLECALCIFEROL 1,000 UNITS 25 MCG TAB PO SCH (08:38)
[2021-03-23] MEDS: MULTIVITAMIN TAB PO SCH (08:38)
--- NOTE | 2021-03-23 09:32 | Orthopedic Progress Note ---
Date of Service March 23, 2021 Assessment & Plan (1) Arthritis of knee, left: Postop day 2 status post left total knee arthroplasty. PT/OT protocols. Weightbearing as tolerated. DVT prophylaxis-aspirin p.o. twice daily, SCDs, BIA ferreira. Pain management as written. Progressing well. Plan for discharge to home today. Discharge planning-patient is planning for outpatient PT upon discharge. Admission and Anticipated Discharge Date Admission Date: March 21, 2021 Subjective Postop day 2 Patient currently sitting in her chair at the bedside. Awake and alert. She is about to start one of her therapy sessions. No complaints this morning. States she is having her normal mild discomfort in the operative knee which she expects. Denies shortness of breath, chest pain, lightheadedness. She is hoping to go home today. Physical Exam Physical Exam: Stacey dressing is clean, dry, and intact. Calves are soft and nontender. Neurovascular intact. Toes are mobile. Hemovac has been removed. Results & Data ([facility]) Vital Signs (Past 12 Hours) Vital Signs Temp Pulse Resp BP Pulse Ox 03/23/21 07:24 36.6 C 60 16 112/73 94 03/22/21 22:40 36.5 C 58 L 18 123/79 95
[2021-03-23] MEDS ORDERED: KETOROLAC 30 MG/ML VIAL IV ONE (09:36)
[2021-03-23] MEDS: ASPIRIN 81 MG ECTAB PO SCH (09:56)
[2021-03-23] MEDS: oxyCODONE HCL IR 5 MG TAB (IMMEDIATE RELEASE) PO PRN (10:43)
--- NOTE | 2021-03-28 10:41 | Discharge Summary ---
Date of Service March 28, 2021 Admission HPI Per Admitting Provider Niyah is a pleasant 70 year old female who complains of left knee pain, presents for pre-op evaluation prior to a left total knee replacement by Dr Shah at [facility]. she complains of pain and stiffness in her left knee. she states that the symptoms occur constantly with intermittent worsening. Currently the patient states that the symptoms are moderate-severe. The pain is described as aching, sharp and throbbing. Her symptoms are aggravated by ascending stairs, daily activities, first steps while awake walking. Prior NSAIDs include IBU and Mobic, as well as uses Tylenol for pain. Admission Exam Per Admitting Provider Physical Exam: HT: 5ft 2in WT: 121.8kg BP: 156/82 Constitutional: WD/WN, vitals as above no acute distress Respiratory: normal respiratory effort, lungs clear to auscultation no respiratory distress, no labored breathing and does not use accessory muscles Cardiovascular: RRR, no murmur, no edema Gastrointestinal (Abdomen): normal bowel sounds, soft, nontender, no hepatosplenomegaly Musculoskeletal: Knee: + knee abnormal to inspection (LEFT KNEE), + effusion (+1 effusion), + limited ROM of knee (ROM 0/3/110), + knee ROM with crepitation, + joint line tenderness (medial joint line) and + Fiona's sign positive; no deformity, no skin erythema, no ecchymosis, no valgus laxity, no varus laxity, anterior drawer test negative, Barbra's sign negative and pivot shift test negative Principal Diagnosis Left knee osteoarthritis Discharge Exam Postop day 2 Patient currently sitting in her chair at the bedside. Awake and alert. She is about to start one of her therapy sessions. No complaints this morning. States she is having her normal mild discomfort in the operative knee which she expects. Denies shortness of breath, chest pain, lightheadedness. She is hoping to go home today. Physical Exam Physical Exam: Stefany dressing is clean, dry, and intact. Calves are soft and nontender. Neurovascular intact. Toes are mobile. Hemovac has been removed. Results & Data ([facility]) Vital Signs (Past 12 Hours) Vital Signs Temp Pulse Resp BP Pulse Ox 03/23/21 07:24 36.6 C 60 16 112/73 94 03/22/21 22:40 36.5 C 58 L 18 123/79 95 Discharge Data Allergies Allergy/AdvReac Type Severity Reaction Status Date / Time Sulfa (Sulfonamide Allergy Mild RASH Verified 03/21/21 09:52 Antibiotics) Procedures Performed Operation Date: 03/21/21 12:10 Actual Procedures p Left Total Knee Arthroplasty(Left) - Rizwan Shah DO Ordered Studies 03/21/21 05:00 US - OR guided needle placemen Routine Hospital Course (1) Arthritis of knee, left: Patient was admitted on the above-noted date had the above noted surgery performed which they tolerated well.On the first postoperative day, patient was sitting in a chair at the bedside. They had just finished doing her occupational therapy session. She had some mild pain but was otherwise feeling well. Dressings were clean, dry, and intact. Calves were soft and nontender. Neurovascular was intact. Toes were mobile. Vital signs were stable and hemoglobin was 11.6. Patient was continued on her PT and OT protocols and c ontinued on DVT prophylaxis and pain management. By her second postoperative day, she had no new complaints. Mild pain in the knee. Dressings remained intact. Calves soft and nontender. Neurovascular intact. Vital signs stable. Patient progressed well with her physical therapy and was otherwise remaining stable was felt she could be discharged home. Total Time Total Time Spent Total Time Spent (In Minutes): 5 Discharge Plan Discharge Items Patient Disposition: Home - Self-Care Reason For Visit: Unilateral Primary Osteoarthritis, Left Knee Discharge Diagnosis: Left knee osteoarthritis Activity: Per Instructions section Weightbearing: Left weightbearing Weightbearing Comment: As tolerated with walker Non-emergency contact: Surgeon Call non-emergency contact if: you have any medication questions, your pain is not controlled, your temperature is above 101.5, your wound has increased redness and your wound has increased drainage Follow-up/Referrals: Steve Vegas [Primary Care Provider] - Diet: Carb Consistent or DM2 Addtl Attending Provider Instructions: ACTIVITY RECOMMENDATIONS: SELF CARE INSTRUCTIONS AFTER TOTAL KNEE REPLACEMENT A. You may need to continue a physical therapy program after discharge from the hospital. There are several options available to you. Your doctor will assist you in selecting the best one for you. 1. An out-patient facility 2 to 3 times a week for therapy or home therapy. 2. Continue working on all exercises taught to you in the hospital. Your goals should be to increase bending of your knee to 90 degrees and beyond and to fully straighten your knee. B. You may progress at your own pace from walking with a walker or crutches to a cane; then to no assistive devices. C. Make walking a part of your daily routine. Be up as much as comfortable with rest periods throughout the day. Rest with leg elevation is very important. Use the ice wrap frequently for the first 3-4 weeks. D. There are no restrictions on activities. You may ride in a car, shop, participate in supervisor laboratory animal facility and all social activities. E. Wear the long elastic stockings (BIA hose) 20 hours a day for 2 weeks after surgery. They can be removed several times a day for laundering and for a bath. F. You may shower, no tub baths until cleared by your doctor. SPECIAL CARE INSTRUCTIONS: VERY IMPORTANT TO READ AND REVIEW A. There are a few signs you need to watch for after you are home. Call [facility] if you notice any of the followin. Increased severe knee pain. Some pain is expected especially when you exercise. 2. Increased swelling in your leg or knee; pain or swelling of the calf muscle in either lower leg. 3. Any fluid drainage from the incision. 4. Shortness of breath or chest pain. B. Please call [facility] at if you have any concerns or questions about your operation or recovery. The doctor or his nurse will return your call promptly. C. You must take antibiotics before dental work, bladder, bowel or other surgery. Your doctor will provide you with a permanent care to carry describing this precaution. IMPORTANT: * REMEMBER TO TAKE ASPIRIN, 81 MG, TWICE DAILY FOR 4 WEEKS UNLESS OTHERWISE DIRECTED. THIS IS YOUR BLOOD THINNER. * HIGH RISK PATIENTS MAY BE PRESCRIBED A STRONGER BLOOD THINNER. THIS WILL BE PROVIDED AT DISCHARGE. * CALL IF INCREASED PAIN, REDNESS, DRAINAGE OR FEVER GREATER THAT 101. * WEAR BIA HOSE 20 HOURS PER DAY FOR 2 WEEKS. * STEFANY Dressing - This is a large suction dressing covering your incision. This will help pull any excess drainage from the wound and allow your incision to heal properly. You may shower with this if you can keep the unit outside of the shower. If any bleeding or leakage is noted please call your doctor's office. This will remain on your incision for 7 days and then should be removed. This can be done yourself or by the home nursing staff if applicable. The entire unit is disposable once removed. Once removed, keep incision clean and dry. If redness or drainage is noted, please call your surgeon. . FOLLOW UP VISIT: If appointment is not already scheduled: Please call [facility] to make a follow-up appointment for 2 weeks after your surgery at . Stand-Alone Forms: [facility] iTagged, Smoking Cessation Medications and DC Order Prescriptions: New acetaminophen 500 mg Tablet 1,000 mg PO Q8 14 Days Qty: 84 RF: 0 aspirin 81 mg Tablet,Delayed Release (Dr/Ec) 81 mg PO BID 30 Days Qty: 60 RF: 0 cefadroxil 500 mg capsule 500 mg PO BID Qty: 28 RF: 1 polyethylene glycol 3350 [Miralax] 17 gram powder in packet 17 g PO DAILY PRN (Reason: constipation) Qty: 5 RF: 0 oxycodone 5 mg Tablet 5 mg PO Q4H MDD 6 PRN (Reason: pain) Qty: 30 RF: 0 Continued atorvastatin 10 mg Tablet 10 mg PO PM RF: 0 ascorbic acid (vitamin C) [Vitamin C] 500 mg Tablet 500 mg PO QAM RF: 0 lisinopril 10 mg Tablet 10 mg PO QPM RF: 0 atenolol 50 mg Tablet 50 mg PO QPM RF: 0 glipizide 5 mg Tablet 2.5 mg PO QPM RF: 0 cholecalciferol (vitamin D3) [Vitamin D3] 50 mcg (2,000 unit) Capsule 50 mcg PO QAM RF: 0 calcium carbonate [Calcium 500] 500 mg calcium (1,250 mg) Tablet 1,000 mg PO QAM RF: 0 Discontinued ibuprofen 200 mg Capsule 200 mg PO Q6H PRN (Reason: Pain) RF: 0 aspirin [Aspir-81] 81 mg Tablet,Delayed Release (Dr/Ec) 81 mg PO QPM RF: 0 meloxicam 7.5 mg Tablet 7.5 mg PO QAM RF: 0 acetaminophen [Tylenol Extra Strength] 500 mg Capsule 500 mg PO Q6H PRN (Reason: Pain) RF: 0 Morris 3 Fish Oil 900-1,400 mg Capsule,Delayed Release(Dr/Ec) 1 cap PO QAM RF: 0 Discharge Orders: Discharge Order (Routine); Ordered 03/23/21 Ordered By: Sivakumar Reeves/Other Patient Handouts: DVT Post Op Prevention, Managing Type 2 Diabetes, A1C Admission Data Admit Date/Time: 03/21/21 15:01 Attending Provider: Rizwan Shah Admit Provider: Rizwan Shah Primary Care Provider: Steve Vegas Other Interventions: Discharge Summary Assessment (RN) Last Done: 03/23/21 11:24
== END 2021-03-23 14:52 | disposition home or self-care (01) ==
LOC: ASU 09:22 → 3E 09:22